=== PATIENT | female | born 1960 | race Caucasian/White ===

== ENCOUNTER 2018-01-24 08:00 | Outpatient (CLI) | payer BC ==
[2018-01-24 09:16] LABS: eGFR (Non-African) > 60
[2018-01-24 23:00] LABS: MCV 90.9 fL (80.0-100.0); PLATELET COUNT 416 thou/uL (130-400)
[2018-01-26 09:30] LABS: SEGMENTED NEUTROPHILS % 27 % (39-79)
[2018-01-26 09:31] LABS: BASOPHILS % 0 % (0-2); EOSINOPHILS % 2 % (0-7); MONOCYTES % 4 % (0-11); SMUDGE CELLS 73 #PER 100 (0-0)
== END 2018-01-24 08:02 ==
LOC: LAB 08:00
PROVIDERS: ATTEND Nurse Practitioner Psychiatric/Mental Health
DX: Z79.899 Other long term (current) drug therapy (principal); Z13.29 Encounter for screening for other suspected endocrine disorder
CPT/HCPCS: 36415; 80053; 80061; 80178; 83036; 84439; 84443; 84481; 85025

== ENCOUNTER 2019-01-01 11:11 | Outpatient (CLI) | payer BC ==
[2019-01-01 11:43] LABS: eGFR (Non-African) > 60
== END 2019-01-01 11:13 ==
LOC: LAB 11:11
PROVIDERS: ATTEND Internal Medicine
DX: E87.5 Hyperkalemia (principal)
CPT/HCPCS: 36415; 80053